=== PATIENT | female | born 1975 | race Caucasian/White ===

== ENCOUNTER 2022-01-27 17:29 | Inpatient (IN) ==
[2022-01-27 18:11] LABS: Bacteria,Urine Few per hpf (None-Few); Bilirubin,Urine Negative (Negative); Blood,Urine Negative (Negative); Clarity,Urine Clear (Clear); Color,Urine Yellow (Yellow); Glucose,Urine (UA) >=1000 mg/dL (Normal); Ketones,Urine Negative (Negative); Leukocyte Esterase,Urine Negative (Negative); Mucus,Urine Few per lpf (None-Few); Nitrite,Urine Negative (Negative); PH,Urine 5.5 pH Units (5.0-8.0); Protein,Urine Trace mg/dL (Neg-Trace); RBC,Urine 0-3 per hpf (0-3); Specific Gravity,Urine 1.021 (1.010-1.025); Squamous Epithelial Cell,Urine Few per hpf (None-Few)
[2022-01-27 18:16] LABS: Amphetamine Screen,Urine Negative ng/mL (Cutoff=1000); Barbiturate Screen,Urine Negative ng/mL (Cutoff=200); Benzodiazepines Screen,Urine Negative ng/mL (Cutoff=200); Cannabinoid Screen,Urine Negative ng/mL (Cutoff = 50); Cocaine Screen,Urine Negative ng/mL (Cutoff= 300); Opiate Screen,Urine Negative ng/mL (Cutoff=300); Phencyclidine Screen,Urine Negative ng/mL (Cutoff=25)
[2022-01-27 18:26] LABS: Basophils # 0.1 K/mcL (0.0-0.2); Basophils % 0.6 %; Eosinophils # 0.2 K/mcL (0.0-0.6); Hematocrit 46.9 % (35.3-44.9); Hemoglobin 15.5 g/dL (11.5-15.4); Immature Granulocytes % 0.3 % (0-4); Lymphocytes # 3.4 K/mcL (0.6-4.6); Lymphocytes % 31.7 %; Mean Corpuscular Hemoglobin 29.7 pg (28.0-33.3); Mean Corpuscular Volume 89.8 fL (83.0-100.0); Mean Platelet Volume 9.8 fL (9.4-12.4); Monocytes # 0.7 K/mcL (0.0-1.3); Neutrophils # 6.4 K/mcL (1.6-8.9); Platelet Count 347 K/mcL (140-400); Red Blood Count 5.22 M/mcL (3.82-4.97); Red Cell Distribution Width 12.9 % (11.5-14.5); Segmented Neutrophils % 59.4 %; White Blood Count 10.8 K/mcL (4.3-11.1)
[2022-01-27] MEDS ORDERED: Acetaminophen 325 MG TABLET PO ONE (18:31)
[2022-01-27 18:45] LABS: Acetaminophen < 10 mcg/mL (10-20); BUN/Creatinine Ratio 6 (6-26); Blood Urea Nitrogen 5 mg/dL (6-20); Calcium 9.1 mg/dL (8.6-10.3); Carbon Dioxide 32 mEq/L (23-29); Chloride 101 mEq/L (98-107); Chol/HDL Ratio 4.4 (0-4.9); Cholesterol 173 mg/dL (< 200); Ethanol < 10 mg/dL (Less than 10); Glucose 282 mg/dL (70-105); HDL Cholesterol 39 mg/dL (40-59); LDL Cholesterol,Calculated 87 mg/dL (< 100); Osmolality,Calculated 295 (280-300); Potassium 3.8 mEq/L (3.5-5.1); Salicylate < 2.5 mg/dL (15.0-30.0); Sodium 139 mEq/L (136-145); Triglycerides 236 mg/dL (< 150); eGFR For African Americans > 60 (> 60); eGFR For Non-African Americans > 60 (> 60)
[2022-01-27 19:44] LABS: Estimated Average Glucose 252 mg/dl; Hemoglobin A1C 10.4 %
[2022-01-27 22:40] LABS: Influenza A PCR Negative (Negative); Influenza B PCR Negative (Negative); Resp. Syncytial Virus PCR Negative (Negative)
[2022-01-27 22:41] LABS: SARS-CoV-2 by PCR (In House) Negative (Negative)
[2022-01-28] MEDS ORDERED: Haloperidol Lactate 5 MG/ML VIAL IM PRN (20:10)
[2022-01-28] MEDS ORDERED: *HR* LORazepam 2 MG/ML VIAL IM PRN (20:10)
[2022-01-28] MEDS ORDERED: Mag Hydrox/Al Hydrox/Simeth 30 ML UDC PO PRN (20:10)
[2022-01-28] MEDS ORDERED: haloperidoL 5 MG TABLET PO PRN (20:10)
[2022-01-28] MEDS ORDERED: MOM Conc 10 ML UD.LIQ PO PRN (20:10)
[2022-01-28] MEDS ORDERED: *HR* LORazepam 1 MG TABLET PO PRN (20:10)
[2022-01-28] MEDS: hydrOXYzine pamoate 25 MG CAPSULE PO PRN (21:44)
[2022-01-28] MEDS: traZODone 50 MG TABLET PO PRN (22:20)
[2022-01-29] MEDS: Nicotine 7 MG PATCH.TD24 TD SCH (08:48)
[2022-01-29] MEDS: hydrOXYzine pamoate 25 MG CAPSULE PO PRN ×2 (09:19→20:36)
[2022-01-29] MEDS: RisperiDONE-M 1 MG TAB.RAPDIS PO SCH (20:36)
[2022-01-29] MEDS: traZODone 50 MG TABLET PO PRN (20:37)
[2022-01-29] MEDS: Acetaminophen 325 MG TABLET PO PRN (20:37)
[2022-01-30] MEDS: RisperiDONE-M 1 MG TAB.RAPDIS PO SCH ×2 (09:24→20:42)
[2022-01-30] MEDS: Nicotine 7 MG PATCH.TD24 TD SCH (09:25)
[2022-01-30] MEDS: hydrOXYzine pamoate 25 MG CAPSULE PO PRN ×3 (09:37→20:40)
[2022-01-30] MEDS ORDERED: traZODone 50 MG TABLET PO PRN (12:18)
[2022-01-30] MEDS: Acetaminophen 325 MG TABLET PO PRN ×2 (15:35→20:41)
[2022-01-31] MEDS: Acetaminophen 325 MG TABLET PO PRN ×2 (03:23→20:20)
[2022-01-31] MEDS: Nicotine 7 MG PATCH.TD24 TD SCH (09:16)
[2022-01-31] MEDS: RisperiDONE-M 1 MG TAB.RAPDIS PO SCH ×2 (09:16→20:19)
[2022-01-31] MEDS: hydrOXYzine pamoate 25 MG CAPSULE PO PRN ×3 (11:33→20:19)
[2022-01-31] MEDS: clonazePAM 0.5 MG TABLET PO PRN ×2 (12:25→17:33)
[2022-01-31] MEDS: QUEtiapine Fumarate 25 MG TABLET PO PRN ×2 (20:19→21:19)
[2022-02-01] MEDS: Acetaminophen 325 MG TABLET PO PRN ×2 (06:47→16:17)
[2022-02-01] MEDS: RisperiDONE-M 1 MG TAB.RAPDIS PO SCH ×2 (09:13→20:29)
[2022-02-01] MEDS: clonazePAM 0.5 MG TABLET PO PRN ×2 (09:15→15:13)
[2022-02-01] MEDS: hydrOXYzine pamoate 25 MG CAPSULE PO PRN ×3 (09:16→20:40)
[2022-02-01] MEDS: Nicotine 7 MG PATCH.TD24 TD SCH (09:17)
[2022-02-01] MEDS ORDERED: traZODone 50 MG TABLET PO PRN (10:10)
[2022-02-01] MEDS ORDERED: QUEtiapine Fumarate 25 MG TABLET PO PRN (10:13)
[2022-02-01] MEDS ORDERED: QUEtiapine Fumarate 100 MG TABLET PO SCH (21:00)
[2022-02-02] MEDS: clonazePAM 0.5 MG TABLET PO PRN (09:07)
[2022-02-02] MEDS: Nicotine 7 MG PATCH.TD24 TD SCH (09:07)
[2022-02-02] MEDS: RisperiDONE-M 1 MG TAB.RAPDIS PO SCH (09:07)
[2022-02-02 10:14] VITALS: BP 117/75; PULSE 101; TEMP 97.6; O2SAT 100
== END 2022-02-02 13:08 | disposition home or self-care (01) | DRG 885 ==
LOC: EMEROOARM 17:29 → 1ANU 01-28 20:05
PROVIDERS: ADMIT Psychiatry & Neurology Psychiatry; ATTEND Psychiatry & Neurology Psychiatry